=== PATIENT | female | born 1990 | race Two or more races ===

== ENCOUNTER 2022-01-21 14:28 | Emergency (ER) | payer MEDICAID ==
[~2022-01-21] VITALS: Ht 154.9 cm; Wt 52.0 kg
[2022-01-21 16:07] VITALS: BP 129/71
== END 2022-01-21 17:39 | disposition home or self-care (01) ==
LOC: ER 14:28
DX: M79.602 Pain in left arm (principal); X58.XXXA Exposure to other specified factors, initial encounter; Y93.89 Activity, other specified; Y92.89 Other specified places as the place of occurrence of the external cause; Y99.8 Other external cause status
CPT/HCPCS: 73060; 93971

== ENCOUNTER 2023-02-08 09:34 | Emergency (ER) | payer MEDICAID ==
[~2023-02-08] VITALS: Ht 154.9 cm; Wt 90.0 kg
[2023-02-08 10:27] LABS: Basophils # (auto) 0.1 10 ^3/uL (0-0.2); Basophils % (auto) 0.7 % (0.0-2.0); Eosinophils # (auto) 0.4 10 ^3/uL (0-0.8); Hematocrit 42.2 % (36.0-46.0); Hemoglobin 13.9 g/dL (12.2-16.2); Lymphocytes # (auto) 2.9 10 ^3/uL (0.4-5.4); Lymphocytes % (auto) 26.7 % (10.0-50.0); Mean Corpuscular Hemoglobin 28.9 pg (28.0-32.0); Mean Corpuscular Hgb Conc. 32.9 g/dL (32.0-36.0); Mean Corpuscular Volume 87.7 fL (80.0-100.0); Monocytes # (auto) 0.8 10 ^3/uL (0-1.3); Monocytes % (auto) 7.3 % (0.0-12.0); Neutrophils # (auto) 6.7 10 ^3/uL (1.6-8.6); Neutrophils % (auto) 61.3 % (37.0-80.0); Nucleated Red Blood Cells % 0.2 %; Red Blood Cells 4.81 10^6/uL (4.0-5.20); Red Cell Distribution Width 13.6 % (11.8-14.3); White Blood Cell 10.9 10^3/uL (4.4-10.8)
[2023-02-08 11:30] LABS: Urine Bacteria NONE SEEN /hpf (None Seen); Urine Blood Negative /uL (Negative); Urine Clarity HAZY (Clear); Urine Color Yellow (Yellow); Urine Mucus FEW (None Seen); Urine Protein, UAD TRACE (Negative); Urine Specific Gravity 1.028 (1.001-1.035); Urine Urobilinogen Normal (Negative); Urine WBC 3 /hpf (0 - 5)
[2023-02-08] MEDS: METOCLOPRAMIDE HCL 10 MG TAB PO ONE ×2 (12:57→13:28)
[2023-02-08 13:05] LABS: Alanine Aminotransferase 16 U/L (7-40); Albumin 4.7 g/dL (3.2-4.8); Alkaline Phosphatase 76 U/L (46-116); Anion Gap 5 (5-15); Aspartate Aminotransferase 12 U/L (13-40); BUN/Creatinine Ratio 12.2 (10.0-20.0); Bilirubin, Total 0.5 mg/dL (0.2-1.0); Blood Urea Nitrogen 9 mg/dL (9-23); Calcium 9.7 mg/dL (8.7-10.4); Carbon Dioxide 27 mmol/L (20-30); Chloride 107 mmol/L (98-107); Glucose 91 mg/dL (74-106); Lipase 44 U/L (12-53); Potassium 4.8 mmol/L (3.5-5.1); Sodium 139 mmol/L (136-145); Total Protein 7.5 g/dL (5.7-8.2)
[2023-02-08 13:30] VITALS: BP 116/80; PULSE 69; RESP 18; TEMP 98.3; O2SAT 100
[2023-02-08] MEDS ORDERED: DICY10CA PO (14:04)
[2023-02-08] MEDS ORDERED: FAMO20TA10 PO (14:04)
[2023-02-08] MEDS ORDERED: NAPR-1334 PO (14:04)
== END 2023-02-08 14:17 | disposition home or self-care (01) ==
LOC: ER 09:34
DX: K21.9 Gastro-esophageal reflux disease without esophagitis (principal); R10.2 Pelvic and perineal pain; K80.20 Calculus of gallbladder without cholecystitis without obstruction; Z98.890 Other specified postprocedural states
CPT/HCPCS: 36415; 71045; 76705; 80053; 81001; 83690; 84484; 84702; 85025; 93005; 99285; J8597

== ENCOUNTER 2023-11-16 04:39 | Emergency (ER) | payer MEDICAID ==
[~2023-11-16] VITALS: Ht 154.9 cm; Wt 96.9 kg
[~2023-11-16 04:39] MED LIST: DICY10CA PO; FAMO20TA10 PO; NAPR-1335 PO
[2023-11-16 05:03] LABS: Urine Bacteria None Seen /hpf (None Seen)
[2023-11-16 05:31] LABS: Basophils # (auto) 0.1 10 ^3/uL (0-0.2); Basophils % (auto) 0.6 % (0.0-2.0); Eosinophils # (auto) 0.5 10 ^3/uL (0-0.8); Eosinophils % (auto) 5.1 % (0.0-7.0); Hematocrit 41.5 % (36.0-46.0); Hemoglobin 14.1 g/dL (12.2-16.2); Lymphocytes # (auto) 2.6 10 ^3/uL (0.4-5.4); Lymphocytes % (auto) 24.7 % (10.0-50.0); Mean Corpuscular Hemoglobin 29.7 pg (28.0-32.0); Mean Corpuscular Hgb Conc. 34.1 g/dL (32.0-36.0); Mean Corpuscular Volume 87.3 fL (80.0-100.0); Monocytes # (auto) 0.8 10 ^3/uL (0-1.3); Monocytes % (auto) 7.3 % (0.0-12.0); Neutrophils # (auto) 6.6 10 ^3/uL (1.6-8.6); Neutrophils % (auto) 62.3 % (37.0-80.0); Red Blood Cells 4.75 10^6/uL (4.0-5.20); Red Cell Distribution Width 13.8 % (11.8-14.3); White Blood Cell 10.6 10^3/uL (4.4-10.8)
[2023-11-16 05:37] LABS: Urine Blood 1+ /uL (Negative); Urine Clarity Clear (Clear); Urine Color Light-Yellow (Yellow); Urine Protein, UAD Negative (Negative); Urine Specific Gravity 1.023 (1.001-1.035); Urine Urobilinogen Normal (Negative); Urine WBC 1 /hpf (0 - 5); Urine pH 6.5 (5.0-9.0)
[2023-11-16 05:43] LABS: Alanine Aminotransferase 17 U/L (7-40); Albumin 4.3 g/dL (3.2-4.8); Alkaline Phosphatase 79 U/L (46-116); Anion Gap 6 (5-15); Aspartate Aminotransferase 10 U/L (13-40); BUN/Creatinine Ratio 16.9 (10.0-20.0); Blood Urea Nitrogen 13 mg/dL (9-23); Calcium 9.7 mg/dL (8.7-10.4); Carbon Dioxide 27 mmol/L (20-30); Chloride 107 mmol/L (98-107); Glucose 102 mg/dL (74-106); Lipase 36 U/L (12-53); Potassium 3.7 mmol/L (3.5-5.1); Sodium 140 mmol/L (136-145)
[2023-11-16 05:44] LABS: Bilirubin, Total 0.3 mg/dL (0.2-1.0); Total Protein 7.2 g/dL (5.7-8.2)
[2023-11-16 06:15] VITALS: BP 135/85; PULSE 81; RESP 17; TEMP 98.8; O2SAT 97
[2023-11-16] MEDS: FAMOTIDINE 20 MG TAB PO ONE (06:43)
[2023-11-16] MEDS: LIDOCAINE VISCOUS 2% 15ML UD PO ONE (06:43)
[2023-11-16] MEDS: MAALOX PLUS or MAALOX 30 ML PO ONE (06:43)
[2023-11-16] MEDS ORDERED: FAMO20TA10 PO (08:07)
== END 2023-11-16 08:15 | disposition home or self-care (01) ==
LOC: ER 04:39
DX: K29.70 Gastritis, unspecified, without bleeding (principal); Z79.899 Other long term (current) drug therapy; Z98.890 Other specified postprocedural states
CPT/HCPCS: 36415; 80053; 81001; 83690; 85025

== ENCOUNTER 2023-12-31 03:09 | Inpatient (IN) | payer MEDICAID ==
[~2023-12-31] VITALS: Ht 182.9 cm; Wt 214.9 kg
[2023-12-31 03:29] LABS: Urine Bacteria None Seen /hpf (None Seen)
[2023-12-31 03:38] LABS: Urine Blood TRACE /uL (Negative); Urine Clarity Clear (Clear); Urine Color Yellow (Yellow); Urine Mucus FEW (None Seen); Urine Protein, UAD 1+ (Negative); Urine Specific Gravity 1.033 (1.001-1.035); Urine Urobilinogen 3 mg/dL (Negative); Urine WBC 2 /hpf (0 - 5)
[2023-12-31] MEDS: IOHEXOL 300 MG/ML 100ML BOTTLE IJ ONE (04:33)
[2023-12-31] MEDS: PANTOPRAZOLE 40 MG/10 ML VIAL INJ IV ONE (04:37)
[2023-12-31 04:38] LABS: Basophils # (auto) 0.1 10 ^3/uL (0-0.2); Basophils % (auto) 0.6 % (0.0-2.0); Eosinophils # (auto) 0.8 10 ^3/uL (0-0.8); Eosinophils % (auto) 6.4 % (0.0-7.0); Hematocrit 40.3 % (36.0-46.0); Hemoglobin 13.6 g/dL (12.2-16.2); Lymphocytes # (auto) 1.8 10 ^3/uL (0.4-5.4); Lymphocytes % (auto) 14.9 % (10.0-50.0); Mean Corpuscular Hemoglobin 29.8 pg (28.0-32.0); Mean Corpuscular Hgb Conc. 33.7 g/dL (32.0-36.0); Mean Corpuscular Volume 88.3 fL (80.0-100.0); Monocytes # (auto) 0.9 10 ^3/uL (0-1.3); Monocytes % (auto) 7.4 % (0.0-12.0); Neutrophils # (auto) 8.3 10 ^3/uL (1.6-8.6); Neutrophils % (auto) 70.7 % (37.0-80.0); Platelet Count (auto) 282 10^3/uL (140-450); Red Blood Cells 4.56 10^6/uL (4.0-5.20); Red Cell Distribution Width 13.8 % (11.8-14.3); White Blood Cell 11.8 10^3/uL (4.4-10.8)
[2023-12-31 04:56] VITALS: PULSE 81; RESP 16; O2SAT 98
[2023-12-31 04:56] LABS: Alanine Aminotransferase 45 U/L (7-40); Albumin 4.5 g/dL (3.2-4.8); Alkaline Phosphatase 77 U/L (46-116); Anion Gap 8 (5-15); Aspartate Aminotransferase 35 U/L (13-40); BUN/Creatinine Ratio 16.7 (10.0-20.0); Bilirubin, Total 0.3 mg/dL (0.2-1.0); Blood Urea Nitrogen 11 mg/dL (9-23); Calcium 9.8 mg/dL (8.7-10.4); Carbon Dioxide 24 mmol/L (20-30); Chloride 108 mmol/L (98-107); Glucose 100 mg/dL (74-106); Potassium 4.2 mmol/L (3.5-5.1); Sodium 140 mmol/L (136-145)
[2023-12-31] MEDS: ONDANSETRON HCL 4 MG/2 ML VIAL IV ONE (04:57)
[2023-12-31] MEDS: SODIUM CHLORIDE 0.9% 1,000 ML IV ONE (04:57)
[2023-12-31] MEDS: MORPHINE SULFATE 4 MG/ML SYR/VIAL IV ONE (04:57)
[2023-12-31 05:08] LABS: Lipase 33 U/L (12-53)
[2023-12-31] MEDS: ceFAZolin 1GM/50ML 50 ML IV ONE (06:24)
[2023-12-31 07:35] VITALS: PULSE 78; RESP 16; O2SAT 96
[2023-12-31] MEDS: metroNIDAZOLE 500MG/100ML 100 ML IV ONE (08:13)
[2023-12-31 14:40] VITALS: BP 116/62; PULSE 73; RESP 14; TEMP 98.1; O2SAT 97
[2023-12-31 17:00] VITALS: BP 117/66; PULSE 72; RESP 16; TEMP 98.3; O2SAT 95
[2023-12-31 21:00] VITALS: BP 112/67; PULSE 64; RESP 18; TEMP 97.9; O2SAT 97
[2023-12-31] MEDS: metroNIDAZOLE 500MG/100ML 100 ML IV SCH (21:10)
[2024-01-01 05:00] VITALS: BP 108/52; PULSE 72; RESP 20; TEMP 98.3; O2SAT 95
[2024-01-01 06:07] LABS: Basophils # (auto) 0.1 10 ^3/uL (0-0.2); Basophils % (auto) 0.8 % (0.0-2.0); Eosinophils # (auto) 0.6 10 ^3/uL (0-0.8); Eosinophils % (auto) 8.5 % (0.0-7.0); Hematocrit 36.1 % (36.0-46.0); Hemoglobin 12.5 g/dL (12.2-16.2); Mean Corpuscular Hemoglobin 30.6 pg (28.0-32.0); Mean Corpuscular Hgb Conc. 34.7 g/dL (32.0-36.0); Mean Corpuscular Volume 88.1 fL (80.0-100.0); Monocytes # (auto) 0.6 10 ^3/uL (0-1.3); Monocytes % (auto) 9.2 % (0.0-12.0); Neutrophils # (auto) 3.6 10 ^3/uL (1.6-8.6); Neutrophils % (auto) 52.5 % (37.0-80.0); Platelet Count (auto) 254 10^3/uL (140-450); Red Cell Distribution Width 13.9 % (11.8-14.3); White Blood Cell 6.9 10^3/uL (4.4-10.8)
[2024-01-01 06:09] LABS: Chloride 107 mmol/L (98-107); Sodium 139 mmol/L (136-145)
[2024-01-01 06:10] LABS: Anion Gap 5 (5-15); Calcium 9.4 mg/dL (8.7-10.4); Carbon Dioxide 27 mmol/L (20-30)
[2024-01-01 06:15] LABS: Blood Urea Nitrogen 8 mg/dL (9-23); Glucose 79 mg/dL (74-106)
[2024-01-01 09:00] VITALS: BP 101/63; PULSE 75; RESP 15; TEMP 98.1; O2SAT 96
[2024-01-01] MEDS: PANTOPRAZOLE 40 MG/10 ML VIAL INJ IV SCH (10:17)
[2024-01-01] MEDS: cefTRIAXone 1GM/50ML D5W 50 ML IV SCH (10:18)
[2024-01-01 13:00] VITALS: BP 110/70; PULSE 79; RESP 16; TEMP 98.3; O2SAT 96
[2024-01-01] MEDS: NICOTINE 14 MG/24HR TOPICAL PATCH TD ONE (15:00)
[2024-01-01] MEDS: SODIUM CHLORIDE 0.9% 1,000 ML IV SCH (15:49)
[2024-01-01 16:17] LABS: INR 1.05 (0.9-1.15); Partial Thromboplastin Time 28.9 SEC (24.5-34.5); Prothrombin Time 11.1 sec (9.3-11.8)
[2024-01-01 17:17] VITALS: BP 115/63; PULSE 73; RESP 15; TEMP 98.2; O2SAT 94
[2024-01-01 21:00] VITALS: BP 122/61; PULSE 76; RESP 18; TEMP 98.4; O2SAT 97
[2024-01-02] VITALS (9 sets, daily range): BP systolic 93–131; BP diastolic 40–78; PULSE 57–86; RESP 16–20; TEMP 97.9–98.5; O2SAT 91–99
[2024-01-02 03:23] LABS: COVID19 ANTIGEN SOFIA FIA NEGATIVE (NEGATIVE)
[2024-01-02 06:31] LABS: Basophils # (auto) 0.1 10 ^3/uL (0-0.2); Basophils % (auto) 0.7 % (0.0-2.0); Eosinophils # (auto) 0.4 10 ^3/uL (0-0.8); Eosinophils % (auto) 5.6 % (0.0-7.0); Hematocrit 37.2 % (36.0-46.0); Hemoglobin 13.1 g/dL (12.2-16.2); Lymphocytes # (auto) 2.1 10 ^3/uL (0.4-5.4); Lymphocytes % (auto) 26.7 % (10.0-50.0); Mean Corpuscular Hemoglobin 30.8 pg (28.0-32.0); Mean Corpuscular Hgb Conc. 35.1 g/dL (32.0-36.0); Mean Corpuscular Volume 87.8 fL (80.0-100.0); Monocytes # (auto) 0.7 10 ^3/uL (0-1.3); Monocytes % (auto) 9.1 % (0.0-12.0); Neutrophils # (auto) 4.5 10 ^3/uL (1.6-8.6); Neutrophils % (auto) 57.9 % (37.0-80.0); Nucleated Red Blood Cells % 0.1 %; Platelet Count (auto) 266 10^3/uL (140-450); Red Blood Cells 4.24 10^6/uL (4.0-5.20); Red Cell Distribution Width 13.8 % (11.8-14.3); White Blood Cell 7.8 10^3/uL (4.4-10.8)
[2024-01-02 06:37] LABS: Chloride 108 mmol/L (98-107); Potassium 3.7 mmol/L (3.5-5.1); Sodium 139 mmol/L (136-145)
[2024-01-02 06:38] LABS: Anion Gap 6 (5-15); Carbon Dioxide 25 mmol/L (20-30)
[2024-01-02 06:39] LABS: Calcium 9.4 mg/dL (8.7-10.4)
[2024-01-02 06:43] LABS: Glucose 89 mg/dL (74-106)
[2024-01-02 06:46] LABS: BUN/Creatinine Ratio 8.3 (10.0-20.0); Blood Urea Nitrogen < 5 mg/dL (9-23)
[2024-01-02] MEDS: NICOTINE 14 MG/24HR TOPICAL PATCH TD SCH (09:31)
[2024-01-02] MEDS ORDERED: MIDAZOLAM HCL 2MG/2ML 2ml VIAL (1mg/ml) ONE (16:25)
[2024-01-02] MEDS ORDERED: PROPOFOL 10 MG/ML 20 ML IV ONE (16:25)
[2024-01-02] MEDS ORDERED: fentaNYL CITRATE 100 MCG/2 ML VL ONE (16:25)
[2024-01-02] MEDS ORDERED: fentaNYL CITRATE 100 MCG/2 ML VL IV PRN (16:30)
[2024-01-02] MEDS: ONDANSETRON HCL 4 MG/2 ML VIAL IV ONE ×2 (16:30→18:05)
[2024-01-02] MEDS ORDERED: MORPHINE SULFATE INJ 2 MG/ml SYRG IV PRN (16:30)
[2024-01-02] MEDS ORDERED: ONDANSETRON HCL 4 MG/2 ML VIAL ONE (16:47)
[2024-01-02] MEDS ORDERED: DexAMETHasone SOD PHOS 10MG/1ML VIAL INJ ONE (16:47)
[2024-01-02] MEDS ORDERED: SUGAMMADEX 200mg/2ml Vial (100MG/ML) IV ONE (17:03)
[2024-01-02] MEDS ORDERED: MEPERIDINE HCL (50 MG/ML) 1 ML VIAL ONE (17:03)
[2024-01-02] MEDS: MORPHINE SULFATE INJ 2 MG/ml SYRG IV PRN (20:09)
[2024-01-02] MEDS: ONDANSETRON HCL 4 MG/2 ML VIAL IV PRN (20:15)
[2024-01-03 01:00] VITALS: BP 129/74; PULSE 76; RESP 19; TEMP 99; O2SAT 92
[2024-01-03 05:00] VITALS: BP 125/82; PULSE 74; RESP 19; TEMP 98; O2SAT 93
[2024-01-03 07:02] LABS: Basophils # (auto) 0 10 ^3/uL (0-0.2); Eosinophils # (auto) 0 10 ^3/uL (0-0.8); Eosinophils % (auto) 0.1 % (0.0-7.0); Hematocrit 38.7 % (36.0-46.0); Hemoglobin 13.4 g/dL (12.2-16.2); Lymphocytes # (auto) 0.9 10 ^3/uL (0.4-5.4); Mean Corpuscular Hemoglobin 30.8 pg (28.0-32.0); Mean Corpuscular Hgb Conc. 34.7 g/dL (32.0-36.0); Mean Corpuscular Volume 88.8 fL (80.0-100.0); Monocytes # (auto) 0.4 10 ^3/uL (0-1.3); Monocytes % (auto) 4.4 % (0.0-12.0); Neutrophils # (auto) 7.9 10 ^3/uL (1.6-8.6); Neutrophils % (auto) 85.5 % (37.0-80.0); Platelet Count (auto) 312 10^3/uL (140-450); Red Blood Cells 4.35 10^6/uL (4.0-5.20); Red Cell Distribution Width 13.7 % (11.8-14.3); White Blood Cell 9.2 10^3/uL (4.4-10.8)
[2024-01-03 07:07] LABS: Alanine Aminotransferase 39 U/L (7-40); Albumin 4.6 g/dL (3.2-4.8); Alkaline Phosphatase 68 U/L (46-116); Anion Gap 7 (5-15); Aspartate Aminotransferase 30 U/L (13-40); Bilirubin, Total 0.5 mg/dL (0.2-1.0); Calcium 10.1 mg/dL (8.7-10.4); Carbon Dioxide 26 mmol/L (20-30); Chloride 105 mmol/L (98-107); Glucose 122 mg/dL (74-106); Magnesium 2.1 mg/dL (1.6-2.6); Potassium 4.7 mmol/L (3.5-5.1); Sodium 138 mmol/L (136-145); Total Protein 7.2 g/dL (5.7-8.2)
[2024-01-03 07:20] LABS: BUN/Creatinine Ratio 7.6 (10.0-20.0); Blood Urea Nitrogen < 5 mg/dL (9-23)
[2024-01-03 08:00] VITALS: PULSE 79; RESP 16
[2024-01-03 09:00] VITALS: BP 137/87; PULSE 79; RESP 16; TEMP 98.3; O2SAT 98
[2024-01-03 13:12] VITALS: BP 125/75; PULSE 82; RESP 17; TEMP 98.3; O2SAT 95
[2024-01-03] MEDS: HYDROcodone-ACET 5/325MG TAB PO PRN (16:31)
[2024-01-03 17:00] VITALS: BP 115/48; PULSE 73; RESP 17; TEMP 98.1; O2SAT 96
== END 2024-01-03 17:45 | disposition home or self-care (01) | DRG 263 ==
LOC: ER 03:09 → OVERFLOW 11:37 → CENTRAL 14:38
PROVIDERS: ADMIT Internal Medicine; ATTEND Internal Medicine
PROC: 0FT44ZZ Resection of Gallbladder, Percutaneous Endoscopic Approach (ICD-10-PCS; principal; 2024-01-02 16:32)
DX: K80.00 Calculus of gallbladder with acute cholecystitis without obstruction (principal); E66.9 Obesity, unspecified; K29.00 Acute gastritis without bleeding; K29.50 Unspecified chronic gastritis without bleeding; K21.9 Gastro-esophageal reflux disease without esophagitis; Z68.41 Body mass index [BMI] 40.0-44.9, adult; Z83.3 Family history of diabetes mellitus; Z82.49 Family history of ischemic heart disease and other diseases of the circulatory system
CPT/HCPCS: 36415; 74177; 76705; 78226; 80048; 80053; 81001; 81025; 83690; 83735; 85025; 85610; 85730; 86850; 86900; 86901; 87426; 99291; G0378; J1100; J2250; J2405; J2470; J2704; J3490

== ENCOUNTER 2024-10-18 14:44 | Emergency (ER) | payer MEDICAID ==
[~2024-10-18] VITALS: Ht 157.5 cm; Wt 95.5 kg
[2024-10-18 14:56] VITALS: TEMP 98.7
--- NOTE | 2024-10-18 15:08 | ED.PDOC ---
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 Patient reports that she confirmed on Thursday with a test that she is now after missing last months period. Patient relays that this morning she begun to experiencing right lower pelvic pain with associated pinkish spotting. Patient denies any fever, chills, heavy bleeding, chest pain, SOB, N/V, or dysuria. Chief Complaint: Vaginal Bleed Time Seen by MD: 15:05 Reviewed Notes: Nurses Notes, Medications, Allergies Allergies: Coded Allergies: NO KNOWN ALLERGIES (Unverified , 02/08/23) Home Meds Active Scripts Famotidine (PEPCID TABLET) 20 Mg Tb, 1 TAB PO BID, #30 TAB 0 Refills Prov:DAVID PARIKH MD 11/16/23 Naproxen Sodium (Naproxen) 220 Mg Tab, 220 MG PO BID for 7 Days, #14 TAB Prov:ANETA BAUTISTA MD 02/08/23 Famotidine (PEPCID TABLET) 20 Mg Tb, 1 TAB PO BID PRN for 7 Days, #14 TAB 5 Refills Prov:ANETA BAUTISTA MD 02/08/23 Dicyclomine Hcl (BENTYL CAPSULE) 10 Mg Cp, 1 CAP PO TID for 7 Days, #21 CAP 11 Refills Prov:ANETA BAUTISTA MD 02/08/23 Information Source: Patient Mode of Arrival: Ambulatory Timing: Hours Prehospital treatment: None Severity: Moderate Bleeding Quality: Bright Red Onset Of Mass/Bleeding: Spontaneous Sexual Activity: Last Consensual [place]: Unknown Control: None History of: Current Associated Signs and Symptoms: Abdominal Pain Past Medical History PAST MEDICAL HISTORY: GERD Surgical History: Cholecystectomy, 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: 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 all BATCHING 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 Hx Family History Family History: Reviewed,noncontributory to illness, Family hx of DM, Family hx of heart paola, Family hx of HTN Social History Smoker: Cigarettes Alcohol: Denies ETOH Use Drugs: Denies Drug Use Lives In: Home Constitutional: denies: chills, diaphoresis, fatigue, fever, malaise, sweats, weakness, others EENTM: denies: blurred vision, double vision, ear bleeding, ear discharge, ear drainage, ear pain, ear ringing, eye pain, eye redness, hearing loss, mouth pain, mouth swelling, nasal discharge, nose bleeding, nose congestion, nose pain, photophobia, tearing, throat pain, throat swelling, voice changes, others Respiratory: denies: cough, hemoptysis, orthopnea, SOB at rest, shortness of breath, SOB with excertion, stridor, wheezing, others Cardiovascular: denies: chest pain, dizzy spells, diaphoresis, Dyspnea on exertion, edema, irregular heart beat, left arm pain, lightheadedness, palpitations, PND, syncope, others Gastrointestinal: reports: abdominal pain; denies: abdomen distended, blood streaked bowels, constipated, diarrhea, dysphagia, difficulty swallowing, hematemesis, melena, nausea, poor appetite, poor fluid intake, rectal bleeding, rectal pain, vomiting, others Genitourinary: reports: abnormal vagina bleeding, ; denies: burning, dyspareunia, dysuria, flank pain, frequency, hematuria, incontinence, pain, vagina discharge, urgency, others Neurological: denies: dizziness, fainting, headache, left sided numbness, left sided weakness, numbness, paresthesia, pre-existing deficit, right sided numbness, right sided weakness, seizure, speech problems, tingling, tremors, weakness, others Musculoskeletal: denies: back pain, gout, joint pain, joint swelling, muscle pain, muscle stiffness, neck pain, others Integumetry: denies: bruises, change in color, change in hair/nails, dryness, laceration, lesions, lumps, rash, wounds, others Allergic/Immunocompromised: denies: Difficulty Healing, Frequent Infections, Hives, Itching, others Hematologic/Lymphatic: denies: anemia, blood clots, easy bleeding, easy bruising, swollen glands, others Endocrine: denies: excessive hunger, excessive sweating, excessive thirst, excessive urination, flushing, intolerance to cold, intolerance to heat, unexplained weight gain, unexplained weight loss, others Psychiatric: denies: anxiety, bipolar disorder, depression, hopeless, panic disorder, schizophrenia, sleepless, suicidal, others All Other Systems: Reviewed and Negative Physical Exam General Appearance: No Apparent Distress HEENT: Normal ENT Inspection, Pharynx Normal, TMs Normal Neck: Full Range of Motion, Non-Tender, Normal, Normal Inspection Respiratory: Chest Non-Tender, Lungs Clear, No Accessory Muscle Use, No Respiratory Distress, Normal Breath Sounds Cardiovascular: No Edema, No JVD, No Murmur, No Gallop, Normal Peripheral Pulses, Regular Rate/Rhythm Breast Exam: Deferred Gastrointestinal: No Organomegaly, Non Tender, No Pulsatile Mass, Normal Bowel Sounds, Soft Genitalia: Deferred Pelvic: Deferred Rectal: Deferred Extremities: No calf tenderness, Normal capillary refill, Normal inspection, Normal range of motion, Non-tender, No pedal edema Musculoskeletal : Apperance: Normal Neurologic: Alert, chronometer assembler II-XII nml as Tested, No Motor Deficits, Normal Affect, Normal Mood, No Sensory Deficits Cerebellar Function: Normal Reflexes: Normal Skin: Dry, Normal Color, Warm Lymphatic: No Adenopathy Was a procedure done? Was a procedure done?: No Differential Diagnosis (BATCHING OPERATOR) Vaginal Bleeding: - Complete, - Incomplete, - Threatened X-Ray, Labs, Meds, VS Vital Signs Date Time Temp Pulse Resp B/P (MAP) Pulse Ox O2 Delivery O2 Flow Rate FiO2 10/18/24 14:56 98.7 93 20 117/85 (96) 97 98.7 Lab Test 10/18/24 15:41 Range/Units Beta HCG, Quantitative 1.0 L 1.5-4.2 mIU/mL Quantitative hCG is only 1.0 The ultrasound is being done at this time The patient is being discharged and will follow up primary care doctor The patient will return to the emergency department's condition worsens. Time of 1ST Reevaluation: 17:20 Reevaluation 1ST: Improved Patient Education/Counseling: Diagnosis, Treatment, Prognosis, Need For Follow Up Family Education/Counseling: No Family Present Additional Information Reviewed patient's previous visit(s): 12/31/23 for cholelithiasis The following tests were ordered, and results were reviewed by me: OB US, UA, BHCG Quant Additional information was gathered from interviewing the following independent historian: None I reviewed and agreed with the following test results read by other provider: OB US I discussed treatments and results with medical personnel and: Patient Comprehensive systems review obtained and negative except for what is stated in the HPI. Departure 1 Departure Time of Disposition: 16:27 Impression: Primary Impression: Abnormal vaginal bleeding Disposition: HOME / SELF CARE / HOMELESS Condition: Fair Discharged With: Self Critical Care Note Critical Care Time?: No Stability Stability form required: No Heart Score Heart Score: Heart Score Response (Comments) Value History N/A 0 EKG N/A 0 Age N/A 0 Risk Factors N/A 0 Troponin N/A 0 Total 0 I personally scribed for HERMILO LIU MD ([email or web address]) on 10/18/24 at 15:08. Electronically submitted by Trae Dukes ([email or web address]). I personally scribed for HERMILO LIU MD ([email or web address]) on 10/18/24 at 15:09. Electronically submitted by Trae Dukes ([email or web address]). HERMILO LIU MD Oct 18, 2024 15:08
[2024-10-18 17:50] VITALS: BP 141/88; PULSE 103; RESP 18; O2SAT 96
== END 2024-10-18 17:52 | disposition home or self-care (01) ==
LOC: ER 14:44
DX: O46.90 Antepartum hemorrhage, unspecified, unspecified trimester (principal); F17.210 Nicotine dependence, cigarettes, uncomplicated; R10.2 Pelvic and perineal pain; K21.9 Gastro-esophageal reflux disease without esophagitis; Z90.49 Acquired absence of other specified parts of digestive tract; Z98.890 Other specified postprocedural states; Z79.899 Other long term (current) drug therapy; Z3A.01 Less than 8 weeks gestation of pregnancy
CPT/HCPCS: 36415; 84702